=== PATIENT | female | born 1990 | race African-American/Black ===

== ENCOUNTER 2016-10-26 16:02 | Emergency (ER) | payer MEDICAID ==
[~2016-10-26] VITALS: Ht 152.4 cm; Wt 81.6 kg
[~2016-10-26 16:02] MED LIST: ACYCLOVIR400 MG ORAL; DEBROX15 M1 OT; FIORICET1 EA ORAL; IBUPROFEN600 MG ORAL; NKM
--- NOTE | 2016-10-26 17:00 | Emergency Room Report ---
History of Present Illness General Chief Complaint: Pain Source: Patient Present Illness HPI 25 YO Female presents to the ED c/o Right wrist pain progressive x 4 days. 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 pt is right hand dominant .denies trauma or fall. Denies erythema, superficial tenderness. pt. describes pain as a dull constant ache worse with picking up objects. denies weakness in the extremity. rates her pain as 8/10 in severity. Denies numbness tingling or loss of sensation or gross motor movements of the extremities, incontinence of bowel or bladder. Denies CP, Palpitations, LOC, AMS, dizziness, Changes in Vision, Sensation, paresthesias, or a sudden severe headache. Allergies: Coded Allergies: No Known Allergies (Unverified , 12/30/14) Patient History Past Medical History: see triage record Past Surgical History: none Pertinent Family History: none Last Menstrual Period: 08/28/16 Now: No Immunizations: UTD Reviewed Nursing Documentation: PMH: Agreed, PSxH: Agreed Nursing Documentation-PMH Past Medical History: No Stated History Review of Systems All Other Systems: negative except mentioned in HPI Physical Exam Vital Signs Date Time Temp Pulse Resp B/P Pulse Ox O2 Delivery O2 Flow Rate FiO2 10/26/16 16:20 98.1 68 15 116/76 100 Room Air Sp02 EP Interpretation: reviewed, normal General Appearance: no apparent distress, alert, GCS 15, non-toxic Head: normocephalic, atraumatic Eyes: bilateral eye PERRL, bilateral eye normal inspection ENT: hearing grossly normal, normal pharynx, no angioedema, normal voice Neck: full range of motion, supple/symm/no masses Respiratory: lungs clear, normal breath sounds, speaking full sentences Cardiovascular #1: regular rate, rhythm, no edema, normal capillary refill Cardiovascular #2: 2+ radial (R), 2+ radial (L) Musculoskeletal: back normal, gait/station normal, normal range of motion, tender - mild ttp to the right abductor pollicus brevis and longus. FROM pain exacerbated with resistance. no obvious defomities. Neurologic: alert, oriented x3, responsive, motor strength/tone normal, sensory intact, speech normal Psychiatric: judgement/insight normal, memory normal, mood/affect normal Skin: normal color, no rash, warm/dry, well hydrated Medical Decision Making PA Attestation Dr. Escoto is my supervising Physician whom patient management has been discussed with. Diagnostic Impression: Primary Impression: Tendonitis of wrist, right ER Course Pt. presents to the ED c/o Right wrist pain progressive x 4 days. 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 pt is right hand dominant .denies trauma or fall. Ddx considered but are not limited to Fracture, dislocation, contusion, Sprain/ Strain/Spasm,Tendonitis. Vital signs: are WNL, pt. is afebrile H&PE are most consistent with Tendonitis of the right wrist HPI is not consistent with trauma to warrant imaging at this time. most consistent with overuse type syndrome. ORDERS: - none required at this time, the diagnosis is clinical. ED INTERVENTIONS: - Motrin PO - Right wrist Splint applied by coroner forensic technician. Pt. remains neurovascularly intact. DISCHARGE: At this time pt. is stable for d/c to home. Will provide printed patient care instructions, and any necessary prescriptions. Care plan and follow up instructions have been discussed with the patient prior to discharge. Last Vital Signs Date Time Temp Pulse Resp B/P Pulse Ox O2 Delivery O2 Flow Rate FiO2 10/26/16 16:20 98.1 68 15 116/76 100 Room Air Disposition: HOME, SELF-CARE Condition: Stable Scripts Ibuprofen* (MOTRIN*) 600 Mg Tablet 600 MG ORAL THREE TIMES A DAY, #30 TAB 0 Refills Prov: Dannielle Burton 10/26/16 Departure Forms: Return to Work Return to Work Date: Oct 27, 2016 Work Restrictions: No Heavy Lifting, No Prolonged Standing Other Restrictions: Limited use of right wrist, allow splint to be worn. Return to Full Activity: November 03, 2016 Patient Instructions: Tendinitis Additional Instructions: Take medications as directed. Follow up with PCP in 3-5 days Return sooner to ED if new symptoms occur, or current symptoms become worse. - Please note that this Emergency Department Report was dictated using [employer] technology software, occasionally this can lead to erroneous entry secondary to interpretation by the dictation equipment. Dannielle Burton Oct 26, 2016 17:00
[2016-10-26] MEDS ORDERED: IBUPROFEN600 MG ORAL (17:01)
[2016-10-26 17:06] VITALS: BP 111/71
[2016-10-26 17:11] VITALS: BP 111/71
== END 2016-10-26 17:11 | disposition home or self-care (01) ==
LOC: EMR 17:05
DX: M77.8 Other enthesopathies, not elsewhere classified (principal)
CPT/HCPCS: 29260; 99283

== ENCOUNTER 2017-01-07 10:25 | Emergency (ER) | payer MEDICAID ==
[~2017-01-07] VITALS: Ht 152.4 cm; Wt 77.1 kg
[2017-01-07 10:34] VITALS: BP 111/74
[2017-01-07] MEDS ORDERED: IBUPROFEN600 MG ORAL (11:08)
[2017-01-07 11:11] VITALS: BP 111/74
--- NOTE | 2017-01-07 11:58 | Emergency Room Report ---
History of Present Illness General Chief Complaint: Pain Source: Patient Present Illness HPI 26-year-old female presents ED complaining of right wrist pain. States that the pain is sharp, 9/10, nonradiating. Patient denies trauma to the wrist. States she's had the pain for approximately one month. Was seen in the ER for this previously. Told it was tendinitis and was discharged with a wrist limb. States the pain has persisted despite using the splint. States she does not wear the splint at night. Denies trauma to the wrist. 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 Denies any tingling sensation in the wrist or the fingers. No other aggravating or relieving factors. Denies any other associated symptoms Allergies: Coded Allergies: No Known Allergies (Unverified , 12/30/14) Patient History Past Medical History: none Past Surgical History: none Pertinent Family History: none Social History: Denies: alcohol use, drug use, smoking Last Menstrual Period: 12/14/16 Now: No : 0 Para: 0 Immunizations: UTD Reviewed Nursing Documentation: PMH: Agreed, PSxH: Agreed Nursing Documentation-PMH Past Medical History: No Stated History Review of Systems All Other Systems: negative except mentioned in HPI Physical Exam Vital Signs Date Time Temp Pulse Resp B/P Pulse Ox O2 Delivery O2 Flow Rate FiO2 01/07/17 10:34 98.2 68 18 111/74 100 Room Air Sp02 EP Interpretation: reviewed, normal General Appearance: no apparent distress, alert, GCS 15, non-toxic Head: normocephalic Eyes: bilateral eye PERRL, bilateral eye normal inspection ENT: normal ENT inspection Neck: normal inspection Respiratory: normal inspection Cardiovascular #1: normal inspection Gastrointestinal: normal inspection Rectal: deferred Genitourinary: no CVA tenderness Musculoskeletal: normal range of motion, tender - R wrist. no bruising/ deformity. full ROM Neurologic: alert, oriented x3, responsive, motor strength/tone normal, sensory intact, speech normal Psychiatric: normal inspection Skin: normal inspection Lymphatic: normal inspection Procedures Splinting Splinting : Consent: Verbal Pre-Made Type: velcro Splint: wrist Pre-Proc Neuro Vasc Exam: normal Post-Proc Neuro Vasc Exam: normal Patient Tolerated: Well Complications: None Medical Decision Making Diagnostic Impression: Primary Impression: Tendonitis of wrist, right ER Course Hospital Course 26-year-old female presents to ED complaining of R wrist pain no trauma Differential diagnoses include: Fracture, dislocation, sprain, contusion, bursitis Clinical course Patient placed on stretcher. After initial history, physical exam reveals a female in no acute distress. There is some tenderness to ED on the radial side of the wrist. No bruising or deformity. No crepitus. Full range of motion noted. No replication of pain with median nerve compression I believe the pain has persisted because the patient is not wearing her wrist splints at night when there is unprotected movement. I agree with initial assessment of tendinitis, and patient would not benefit from x-rays at this time Patient placed in a wrist splint. Recommend ice after work. Placing a wrist splint especially at night to protect her wrist. Recommend followup with ortho/ hand Diagnosis - tendinitis of wrist stable and discharged to home with prescription for Motrin. Followup with PMD. Return to ED if symptoms recur or worsen Last Vital Signs Date Time Temp Pulse Resp B/P Pulse Ox O2 Delivery O2 Flow Rate FiO2 01/07/17 11:11 98.3 68 18 111/74 100 Room Air Status: improved Disposition: HOME, SELF-CARE Condition: Stable Scripts Ibuprofen* (MOTRIN*) 600 Mg Tablet 600 MG ORAL Q8H Y for For Pain, #30 TAB 0 Refills Prov: GAVINO GARY M.D. 01/07/17 Patient Instructions: GAVINO Perez M.D. Jan 07, 2017 11:58
== END 2017-01-07 11:15 | disposition home or self-care (01) ==
LOC: EMR 11:15
DX: M77.9 Enthesopathy, unspecified (principal)
CPT/HCPCS: 29260; 99283

== ENCOUNTER 2017-01-31 15:34 | Emergency (ER) | payer MEDICAID ==
[~2017-01-31] VITALS: Ht 152.4 cm; Wt 81.6 kg
[2017-01-31 15:57] VITALS: BP 103/70
[2017-01-31] MEDS ORDERED: KEFLEX500 MG ORAL (16:14)
[2017-01-31 16:20] VITALS: BP 103/70
[2017-01-31 16:53] LABS: APPEARANCE,URINE SLIGHTLY CLOUDY; KETONES,URINE NEGATIVE (NEGATIVE); LEUKOCYTE ESTERASE ,URINE 3+ (NEGATIVE); NITRITE,URINE NEGATIVE (NEGATIVE); PH,URINE 5 (4.5-8.0); PROTEIN,URINE 2+ (NEGATIVE); UROBILINOGEN,URINE 4 MG/DL (0.0-1.0)
[2017-01-31 17:24] LABS: AMORPHOUS SEDIMENT,UR FEW /LPF; BACTERIA,URINE MODERATE /HPF; SQUAMOUS EPITHELIAL CELL,UR FEW /LPF (NONE/OCC)
--- NOTE | 2017-01-31 18:09 | Emergency Room Report ---
History of Present Illness General Chief Complaint: Female Urogenital Problems Source: Patient Present Illness HPI Patient presents emergency department today complaining of dysuria and urinary frequency. And hematuria. Patient complains suprapubic discomfort. Patient has had a history UTI and she states that it feels like she is having a UTI. She also states however that she has not had blood in her urine before which is why she became concerned. She denies any flank pain chest pain shortness of breath. She denies any fever nausea vomiting diarrhea chills. No other complaints are noted. Symptoms noted to be moderate to severe. No other modifying factors. No other associated signs and symptoms. No other complaints were noted. Allergies: Coded Allergies: No Known Allergies (Unverified , 12/30/14) Patient History Past Medical History: none Past Surgical History: none Pertinent Family History: none Social History: Denies: alcohol use, drug use, smoking Last Menstrual Period: 01/13/17 Now: No Reviewed Nursing Documentation: PMH: Agreed, PSxH: Agreed Nursing Documentation-PMH Past Medical History: No Stated History Review of Systems All Other Systems: negative except mentioned in HPI Physical Exam Vital Signs Date Time Temp Pulse Resp B/P Pulse Ox O2 Delivery O2 Flow Rate FiO2 01/31/17 15:57 97.9 76 16 103/70 99 Room Air Sp02 EP Interpretation: reviewed, normal General Appearance: normal inspection, well appearing, no apparent distress, alert Head: atraumatic Eyes: bilateral eye normal inspection ENT: normal ENT inspection, hearing grossly normal, normal voice Neck: normal inspection, full range of motion, supple, no bony tend Respiratory: normal inspection, lungs clear, normal breath sounds, no respiratory distress, no retraction, no wheezing Cardiovascular #1: regular rate, rhythm, no edema Gastrointestinal: normal inspection, normal bowel sounds, soft, no guarding, no hernia, tenderness - Suprapubic Genitourinary: no CVA tenderness Musculoskeletal: normal inspection, back normal, normal range of motion Neurologic: normal inspection, alert, responsive, speech normal Psychiatric: normal inspection, judgement/insight normal, mood/affect normal Skin: normal inspection, normal color, no rash Medical Decision Making Diagnostic Impression: Primary Impression: UTI (urinary tract infection) Qualified Codes: N30.01 - Acute cystitis with hematuria Additional Impression: Dysuria ER Course Patient presents emergency department today complaining dysuria. Differential diagnoses include, urinary tract infection, bladder irritation, bladder spasms, pyelonephritis just to name a few. Patient exam is consistent with a UTI. Patient's urine was positive for UTI. Pt was given a prescription for antibiotics.Patient is advised to follow up with primary doctor in 2-3 days and return the emergency room for any worsening symptoms and as needed. Labs Test 01/31/17 16:18 Urine Color Yellow Urine Appearance Slightly cloudy Urine pH 5 (4.5-8.0) Urine Specific Cam[place] 1.025 (1.005-1.035) Urine Protein 2+ (NEGATIVE) Urine Glucose (UA) Negative (NEGATIVE) Urine Ketones Negative (NEGATIVE) Urine Occult Blood 5+ (NEGATIVE) Urine Nitrite Negative (NEGATIVE) Urine Bilirubin Negative (NEGATIVE) Urine Urobilinogen 4 MG/DL (0.0-1.0) Urine Leukocyte Esterase 3+ (NEGATIVE) Urine RBC 10-15 /HPF (0 - 2) Urine WBC 5-10 /HPF (0 - 2) Urine Squamous Epithelial Cells Few /LPF (NONE/OCC) Urine Amorphous Sediment Few /LPF (NONE) Urine Bacteria Moderate /HPF (NONE) Urine HCG, Qualitative Negative Last Vital Signs Date Time Temp Pulse Resp B/P Pulse Ox O2 Delivery O2 Flow Rate FiO2 01/31/17 15:57 97.9 76 16 103/70 99 Room Air Status: improved Disposition: HOME, SELF-CARE Condition: Stable Scripts Cephalexin* (KEFLEX*) 500 Mg Capsule 500 MG ORAL Q6H, #28 CAP 0 Refills Prov: RAMOS MERCEDES M.D. 01/31/17 Referrals: JESSICA NEWMAN,REFERRING (PCP) Patient Instructions: Urinary Tract Infection RAMOS MERCEDES M.D. Jan 31, 2017 18:09
== END 2017-01-31 16:20 | disposition home or self-care (01) ==
LOC: EMR 16:11
DX: N30.01 Acute cystitis with hematuria (principal)
CPT/HCPCS: 81003; 81025; 87086; 87181; 99283

== ENCOUNTER 2017-09-24 00:21 | Emergency (ER) | payer MEDICAID ==
[~2017-09-24] VITALS: Ht 152.4 cm; Wt 77.1 kg
[~2017-09-24 00:21] MED LIST changes: +KEFLEX500 MG ORAL
[2017-09-24 00:52] VITALS: BP 101/57
[2017-09-24] MEDS ORDERED: PREDNISONE20 MG ORAL (00:52)
[2017-09-24] MEDS ORDERED: ALBUTEROL SULF8.5 GM INH (00:52)
[2017-09-24] MEDS ORDERED: AZITHROMYCIN250 MG ORAL (00:52)
--- NOTE | 2017-09-24 00:53 | Emergency Room Report ---
History of Present Illness General Chief Complaint: Upper Respiratory Illness Source: Patient Present Illness HPI This is a 26-year-old female with no past medical history. She presents with a cough for the last few weeks. She had a viral illness before and the cough has been persistent. Nonproductive in nature. No fever chills but no nausea no vomiting. Worse with inspiration. Allergies: Coded Allergies: No Known Allergies (Unverified , 12/30/14) Patient History Past Medical History: see triage record, old chart reviewed Past Surgical History: none Pertinent Family History: none Social History: Denies: smoking Last Menstrual Period: 08/18/17 Now: No Immunizations: other Reviewed Nursing Documentation: PMH: Agreed; PSxH: Agreed Nursing Documentation-PMH Past Medical History: No Stated History Review of Systems Eye: Denies: eye pain, blurred vision ENT: Denies: ear pain, nose congestion, throat swelling Respiratory: Reports: cough; Denies: shortness of breath Cardiovascular: Denies: chest pain, palpitations Gastrointestinal: Denies: abdominal pain, diarrhea, nausea, vomiting Musculoskeletal: Denies: back pain, joint pain Skin: Denies: rash Neurological: Denies: headache, numbness Endocrine: Denies: increased thirst, increased urine Hematologic/Lymphatic: Denies: easy bruising All Other Systems: negative except mentioned in HPI Physical Exam Vital Signs Date Time Temp Pulse Resp B/P (MAP) Pulse Ox O2 Delivery O2 Flow Rate FiO2 09/24/17 00:37 97.7 71 16 101/57 98 Room Air 97.7 vitals normal Sp02 EP Interpretation: reviewed, normal General Appearance: well appearing, no apparent distress, alert Head: normocephalic, atraumatic Eyes: bilateral eye PERRL, bilateral eye EOMI ENT: hearing grossly normal, normal pharynx Neck: full range of motion, supple, no meningismus Respiratory: chest non-tender, lungs clear, normal breath sounds Cardiovascular #1: regular rate, rhythm, no murmur Gastrointestinal: normal bowel sounds, non tender, no mass, no organomegaly, no bruit, non-distended Musculoskeletal: back normal, gait/station normal, normal range of motion Psychiatric: mood/affect normal Skin: warm/dry Medical Decision Making Diagnostic Impression: Primary Impression: Upper respiratory infection Qualified Codes: J06.9 - Acute upper respiratory infection, unspecified Additional Impression: Atypical pneumonia ER Course Patient with a cough for several weeks now. Worse him for possible atypical pneumonia status post viral infection. Could be bronchospasm. We'll discharge home with antibiotics because of the chronicity of the cough. No evidence of PE , ACS, dissection to name a few. Last Vital Signs Date Time Temp Pulse Resp B/P (MAP) Pulse Ox O2 Delivery O2 Flow Rate FiO2 09/24/17 00:37 97.7 71 16 101/57 98 Room Air 97.7 Status: unchanged Disposition: HOME, SELF-CARE Condition: Stable Scripts Azithromycin* (ZITHROMAX*) 250 Mg Tablet 250 MG ORAL DAILY, #6 TAB 0 Refills Take two tablets by mouth today, then take one tablet by mouth daily for four days Prov: LANA ANGEL M.D. 09/24/17 Prednisone* (PREDNISONE*) 20 Mg Tablet 60 MG ORAL DAILY, #15 TAB Prov: LANA ANGEL M.D. 09/24/17 Albuterol Sulfate* (ALBUTEROL SULFATE MDI*) 8.5 Gm Hfa.aer.ad 2 PUFF INH Q4H PRN for cough/wheezing, #1 EA 0 Refills Prov: LANA ANGEL M.D. 09/24/17 Patient Instructions: Upper Respiratory Infection, Adult Additional Instructions: Follow-up with your DrAshli in 7 days. Return if symptom worsen. LANA ANGEL M.D. Sep 24, 2017 00:53
[2017-09-24 00:58] VITALS: BP 101/57
== END 2017-09-24 01:00 | disposition home or self-care (01) ==
LOC: EMR 00:50
DX: J18.9 Pneumonia, unspecified organism (principal); J06.9 Acute upper respiratory infection, unspecified
CPT/HCPCS: 99284

== ENCOUNTER 2018-02-19 19:56 | Emergency (ER) | payer MEDICAID ==
[~2018-02-19] VITALS: Ht 154.9 cm; Wt 81.6 kg
[~2018-02-19 19:56] MED LIST changes: +ALBUTEROL SULF8.5 GM INH; +AZITHROMYCIN250 MG ORAL; +PREDNISONE20 MG ORAL
[2018-02-19 20:13] VITALS: BP 128/72
[2018-02-19] MEDS ORDERED: TYLENOL325 MG ORAL (20:47)
[2018-02-19 21:32] VITALS: BP 124/72
--- NOTE | 2018-02-19 22:32 | Emergency Room Report ---
History of Present Illness General Chief Complaint: Upper Extremity Injury Source: Patient Present Illness HPI Patient is a 27-year-old female who presented after increased left-sided index finger discomfort. The patient had gradual onset of symptoms. She reports having increased pain with movements. Patient states pain was primarily to the metacarpal joint. she denies recent trauma. Allergies: Coded Allergies: IBUPROFEN (Verified Allergy, Unknown, 02/19/18) Patient History Past Medical History: see triage record Last Menstrual Period: december Reviewed Nursing Documentation: PMH: Agreed; PSxH: Agreed Nursing Documentation-PMH Past Medical History: No Stated History Review of Systems All Other Systems: negative except mentioned in HPI Physical Exam Vital Signs Date Time Temp Pulse Resp B/P (MAP) Pulse Ox O2 Delivery O2 Flow Rate FiO2 02/19/18 19:58 98.2 70 18 117/73 97 Room Air 98.2 General Appearance: well appearing, no apparent distress, alert, GCS 15, obese Head: normocephalic, atraumatic ENT: hearing grossly normal, normal voice Neck: full range of motion, supple Respiratory: no respiratory distress, speaking full sentences Musculoskeletal: no calf tenderness Neurologic: normal inspection, alert, oriented x3, responsive, normal gait, other - left index finger tenderness to flexor tendon Psychiatric: mood/affect normal Skin: no rash Medical Decision Making Diagnostic Impression: Primary Impression: Tendonitis ER Course Patient's 27-year-old female presented after increased hand pain. The differential diagnosis included wasn't limited to fracture, dislocation, sprain , contusion and among others. Patient has a benign exam and does not appear to require any laboratory testing at this time. X-ray imaging of the left hand 3 views interpreted by me showed bony alignment without fracture. The patient is advised to follow up with primary care doctor. Patient is advised to return if any worsening condition or if any changes in status that are concerning. This report is dictated with [employer] underwriting sales representative software which may occasionally lead to discrepancies related to use of this software. Last Vital Signs Date Time Temp Pulse Resp B/P (MAP) Pulse Ox O2 Delivery O2 Flow Rate FiO2 02/19/18 21:32 98.2 78 18 124/72 99 Room Air 98.2 Status: improved Disposition: HOME, SELF-CARE Condition: Stable Scripts Acetaminophen (Tylenol) 325 Mg Tablet 650 MG ORAL Q6H PRN for Prn Pain/Headache/Temp > 101, #30 TAB 0 Refills Prov: Migel Vo MD 02/19/18 Referrals: JESSICA NEWMAN,REFERRING (PCP) Patient Instructions: Migel Saucedo MD Feb 19, 2018 22:32
--- NOTE | 2018-02-20 09:39 | Diagnostic Imaging Report ---
Indication: Left hand pain Technique: 3 views left hand Comparison: none Findings: No acute fractures. No dislocations. The joint spaces are preserved. Impression: Negative
== END 2018-02-19 21:35 | disposition home or self-care (01) ==
LOC: EMR 20:36
DX: M77.9 Enthesopathy, unspecified (principal); Z88.6 Allergy status to analgesic agent; E66.9 Obesity, unspecified; Z68.34 Body mass index [BMI] 34.0-34.9, adult
CPT/HCPCS: 99283

== ENCOUNTER 2018-07-24 20:41 | Emergency (ER) | payer SELFPAY ==
[~2018-07-24] VITALS: Ht 149.9 cm; Wt 81.6 kg
[~2018-07-24 20:41] MED LIST changes: +TYLENOL325 MG ORAL
[2018-07-24 20:55] VITALS: BP 117/84
[2018-07-24] MEDS ORDERED: ROBITUSSIN COU118 M1 PO (20:55)
[2018-07-24] MEDS ORDERED: DELSYM COUGH+C180 M1 PO (20:55)
[2018-07-24] MEDS ORDERED: THERAFLU EXP245.5 ML PO (20:55)
--- NOTE | 2018-07-24 20:55 | NUR ---
ED Nurse Note: pt walked in ed c/o flu like s/s for about five days, progressively worsening, noted dry cough and mild wheezing on expiratory bases on LS, afebrile, skin warm and dry, vss, ambulatoryw/ steady gait, -n/v/d, will cont monitor.
[2018-07-24] MEDS ORDERED: ZITHROMAX250 MG ORAL (21:17)
[2018-07-24] MEDS ORDERED: PREDNISONE20 MG ORAL (21:17)
[2018-07-24] MEDS ORDERED: ALBUTEROL SULF8.5 GM INH (21:17)
--- NOTE | 2018-07-24 21:18 | Emergency Room Report ---
History of Present Illness General Chief Complaint: Upper Respiratory Illness Source: Patient Present Illness HPI Is a 27-year-old female with no past medical history. She presents with a persistent cough for last 2 weeks. Initially with a cold but now with coughing. No nausea no vomiting. No diarrhea. Subjective fever initially. Worse with exertion. Worse with inspiration. Axst-aao-[id number] medication not helping. Allergies: Coded Allergies: IBUPROFEN (Verified Allergy, Unknown, 02/19/18) Patient History Past Medical History: see triage record, old chart reviewed Past Surgical History: none Pertinent Family History: none Social History: Denies: smoking Last Menstrual Period: still on Now: No Immunizations: other Reviewed Nursing Documentation: PMH: Agreed; PSxH: Agreed Nursing Documentation-PMH Past Medical History: No Stated History Review of Systems Eye: Denies: eye pain, blurred vision ENT: Denies: ear pain, nose congestion, throat swelling Respiratory: Reports: cough, shortness of breath Cardiovascular: Denies: chest pain, palpitations Gastrointestinal: Denies: abdominal pain, diarrhea, nausea, vomiting Musculoskeletal: Denies: back pain, joint pain Skin: Denies: rash Neurological: Denies: headache, numbness Endocrine: Denies: increased thirst, increased urine Hematologic/Lymphatic: Denies: easy bruising All Other Systems: negative except mentioned in HPI Physical Exam Vital Signs Date Time Temp Pulse Resp B/P (MAP) Pulse Ox O2 Delivery O2 Flow Rate FiO2 07/24/18 20:49 97.9 61 16 117/84 98 Room Air vitals normal Sp02 EP Interpretation: reviewed, normal General Appearance: well appearing, no apparent distress, alert Head: normocephalic, atraumatic Eyes: bilateral eye PERRL, bilateral eye EOMI ENT: hearing grossly normal, normal pharynx Neck: full range of motion, supple, no meningismus Respiratory: chest non-tender, lungs clear, normal breath sounds, other - Coughing fits with inspirion Cardiovascular #1: regular rate, rhythm, no murmur Gastrointestinal: normal bowel sounds, non tender, no mass, no organomegaly, no bruit, non-distended Musculoskeletal: back normal, gait/station normal, normal range of motion Psychiatric: mood/affect normal Skin: warm/dry Medical Decision Making Diagnostic Impression: Primary Impression: Upper respiratory infection Qualified Codes: J06.9 - Acute upper respiratory infection, unspecified ER Course Patient with an upper rest or infection with bronchospasm. Since this has been going on for over 2 weeks, we'll put on antibiotics. We'll also give inhalers and prednisone. No evidence of ACS, PE, dissection to name a few. Last Vital Signs Date Time Temp Pulse Resp B/P (MAP) Pulse Ox O2 Delivery O2 Flow Rate FiO2 07/24/18 20:49 97.9 61 16 117/84 98 Room Air Status: unchanged Disposition: HOME, SELF-CARE Condition: Stable Scripts Azithromycin* (ZITHROMAX*) 250 Mg Tablet 250 MG ORAL DAILY, #6 TAB 0 Refills Take two tables once daily for 1 day, then one tablet once daily for 4 days. Prov: Wood Cole MD 07/24/18 Prednisone* (PREDNISONE*) 20 Mg Tablet 40 MG ORAL DAILY, #10 TAB Prov: Wood Cole MD 07/24/18 Albuterol Sulfate* (ALBUTEROL SULFATE MDI*) 8.5 Gm Hfa.aer.ad 2 PUFF INH Q4H PRN for cough/wheezing, #1 EA 0 Refills Prov: Wood Cole MD 07/24/18 Patient Instructions: Upper Respiratory Infection, Adult Additional Instructions: Follow-up with your doctor in 7 days. Return if symptom worsen. Wood Cole MD Jul 24, 2018 21:18
[2018-07-24 21:30] VITALS: BP 116/71
--- NOTE | 2018-07-24 21:30 | NUR ---
ED Nurse Note: pt discharge instruction provided w/ prescription, pt wristband removed, pt education done via discussion and handout, pt advised to follow up with pcp or return to ed if s/s worsen or new s/s develop, pt verbalized understanding and agrees with plan, all belongings left with pt.
== END 2018-07-24 21:30 | disposition home or self-care (01) ==
LOC: EMR 21:13
DX: J06.9 Acute upper respiratory infection, unspecified (principal); Z88.6 Allergy status to analgesic agent
CPT/HCPCS: 99282

== ENCOUNTER 2020-01-06 20:34 | Emergency (ER) | payer MEDICAID ==
[~2020-01-06] VITALS: Ht 149.9 cm; Wt 81.6 kg
[~2020-01-06 20:34] MED LIST changes: +DELSYM COUGH+C180 M1 PO; +ROBITUSSIN COU118 M1 PO; +THERAFLU EXP245.5 ML PO; +ZITHROMAX250 MG ORAL
--- NOTE | 2020-01-06 20:45 | NUR ---
ED Nurse Note: Pt walked in c/o cough for 2 weeks. Pt stated she was at rest when s/s occured. Pt stated pain around chest occurs when cough. Pt stated dry cough, denies chills, shortness of breath, fever. Pt stated she was reoccurent cough. vss, pT IS [id number]
--- NOTE | 2020-01-06 21:24 | Emergency Room Report ---
History of Present Illness General Chief Complaint: Upper Respiratory Illness Source: Patient Present Illness HPI The patient presents with 2 weeks of a nonproductive cough. She did produce a slight amount of white phlegm earlier today. She denies any fevers or chills. She has had some minimal chest discomfort with the cough. She denies sore throat. She has been isolating at home and not been exposed to anyone with COVID-19 symptoms. She has been protecting herself when she goes to the store with a mask. She denies any wheezing. She has been using Robitussin day and night. The nighttime formulation is helped her but the daytime does not help with the cough. She reports the pain in her chest is 4/10. She denies any edema or calf pain. A year ago she was treated for pneumonia. At that time she received antibiotics and also an inhaler. She no longer has an inhaler and denies any wheezing at this time. She is on her menstruation at this time. It is normal for her. No sore throat, palpitations, nausea, vomiting, diarrhea, dysuria, abdominal pain, shortness of breath, joint pain, rashes, depression, anxiety, visual changes, dizziness, headache. Allergies: Coded Allergies: IBUPROFEN (Verified Allergy, Unknown, 02/19/18) COVID-19 Screening Contact w/high risk pt: No Recent Travel to affected area: No Experienced COVID-19 symptoms?: Yes COVID-19 symptoms experienced: Cough COVID-19 Testing performed [employer]LE [employer]ICAL EXAMINER: No Patient History Past Medical History: see triage record, pneumonia Social History: Denies: smoking, alcohol use, drug use Social History Narrative Unemployed and lives by herself Last Menstrual Period: current Reviewed Nursing Documentation: PMH: Agreed; PSxH: Agreed Nursing Documentation-PMH Past Medical History: No Stated History Review of Systems All Other Systems: negative except mentioned in HPI Physical Exam Vital Signs Date Time Temp Pulse Resp B/P (MAP) Pulse Ox O2 Delivery O2 Flow Rate FiO2 01/06/20 20:46 97.2 83 16 125/74 (91) 99 Room Air Sp02 EP Interpretation: reviewed, normal General Appearance: well appearing, no apparent distress, GCS 15, non-toxic Head: normocephalic Eyes: bilateral eye normal inspection, bilateral eye PERRL, bilateral eye EOMI ENT: normal pharynx, moist mucus membranes Neck: full range of motion, supple Respiratory: chest non-tender, lungs clear, normal breath sounds Cardiovascular #1: regular rate, rhythm, no edema Gastrointestinal: normal inspection, overweight Musculoskeletal: gait/station normal, no calf tenderness Neurologic: alert, grossly normal Psychiatric: mood/affect normal Skin: normal color, no rash, warm/dry Medical Decision Making Diagnostic Impression: Primary Impression: Upper respiratory infection Qualified Codes: J06.9 - Acute upper respiratory infection, unspecified ER Course Patient presents with 2 weeks of cough with minimal chest pain. Differential includes pneumonia, pulmonary embolus, COVID-19, other viral bronchitis, chest wall pain amongst others. Based on history and physical exam pulmonary embolus extremely unlikely. Based on history and physical pneumonia is excluded. Also based on physical exam imaging and EKG not indicated at this time. This could be COVID-19 although the patient has been social distancing., Discussed symptomatic treatment with patient. In addition discussed the possibility of testing for COVID-19. Discussed the importance of follow-up with her own physician. No medical emergency at this time. Patient stable for outpatient observation and treatment. Last Vital Signs Date Time Temp Pulse Resp B/P (MAP) Pulse Ox O2 Delivery O2 Flow Rate FiO2 01/06/20 21:45 97.2 82 16 125/74 99 Room Air Status: unchanged Disposition: HOME, SELF-CARE Condition: Stable Scripts Guaifenesin/Codeine Phos* (ROBITUSSIN AC*) 118 Ml Liquid 5 ML ORAL Q6H PRN for For Cough, #90 ML 0 Refills Prov: Dillon Escoto MD 01/06/20 Albuterol Sulfate* (PROAIR HFA*) 8.5 Gm Hfa.aer.ad 2 PUFFS INH Q6H PRN for cough or wheezing, #8.5 GM 0 Refills Prov: Dillon Escoto MD 01/06/20 Dillon Escoto MD Jan 06, 2020 21:24
[2020-01-06] MEDS ORDERED: PROAIR HFA8.5 GM INH (21:27)
[2020-01-06] MEDS ORDERED: GUAIFENESIN-CO118 M1 ORAL (21:27)
[2020-01-06 21:45] VITALS: BP 125/74
--- NOTE | 2020-01-06 21:45 | NUR ---
ER DISCHARGE NOTE: Patient is cleared to be discharged per ERMD, pt is aox4, on room air, with stable vital signs. pt was given dc and prescription instructions, pt was able to verbalize understanding, pt id band removed. pt is able to ambulate with steady gait. pt took all belongings.
== END 2020-01-06 21:45 | disposition home or self-care (01) ==
LOC: EMR 21:45
DX: J06.9 Acute upper respiratory infection, unspecified (principal); Z88.6 Allergy status to analgesic agent; E66.3 Overweight; Z68.36 Body mass index [BMI] 36.0-36.9, adult
CPT/HCPCS: 99282